=== PATIENT | female | born 1945 | race Caucasian/White ===

== ENCOUNTER 2019-09-09 15:44 | Outpatient (CLI) | payer MEDICARE, OTHER ==
[~2019-09-09 15:44] MED LIST: CALC1TAB84 PO; CHOL5000 PO; CYAN1TAB51 PO; ELTR50TA PO; LANS15CA5 PO; METH2TAB PO; NABU500T PO; PENT400T12 PO; RESV250C2 PO; YEAS680T2 PO; ZINC50TA47 PO
== END 2019-09-09 23:59 | disposition home or self-care (01) ==
LOC: RAD 15:44
DX: Z02.9 Encounter for administrative examinations, unspecified (principal)

== ENCOUNTER 2019-09-10 13:35 | Outpatient (CLI) | payer MEDICARE, OTHER | END 2019-09-10 23:59 | disposition home or self-care (01) | LOC: CFH 13:35 | PROVIDERS: ATTEND Surgery | DX: K46.9 Unspecified abdominal hernia without obstruction or gangrene (principal); L76.82 Other postprocedural complications of skin and subcutaneous tissue | CPT/HCPCS: 76705 ==